=== PATIENT | female | born 1975 | race African-American/Black ===

== ENCOUNTER 2024-07-18 17:16 | Emergency (ER) | payer MEDICARE, MEDICAID ==
[~2024-07-18] VITALS: Ht 172.7 cm; Wt 82.0 kg
[2024-07-18 17:22] VITALS: O2SAT 99
[2024-07-18] MEDS: LORAZEPAM 1MG TABLET PO ONE (18:15)
[2024-07-18 19:20] VITALS: BP 158/99; PULSE 98; RESP 14; TEMP 36.7; O2SAT 98
== END 2024-07-18 19:30 | disposition home or self-care (01) ==
LOC: ER 17:16
DX: R00.2 Palpitations (principal); F41.9 Anxiety disorder, unspecified
CPT/HCPCS: 99283